=== PATIENT | female | born 1945 | race Caucasian/White ===

== ENCOUNTER → 2018-02-08 | Outpatient (CLI) | payer OTHER ==
[~2018-02-08] MED LIST: AMBIEN CR12.5 MG PO; BUSPAR10 MG PO; CLONAZEPAM0.5 MG PO; FOLIC ACID1 MG PO; LAMICTAL150 M1 PO; LEVAQUIN500 MG PO; MOTRIN800 MG PO; PERCOCET 5/31 TABLET PO; VENLAFAXINE HC150 MG PO; ZANTAC300 MG PO
== END | disposition home or self-care (01) ==
LOC: CT 16:29
DX: R42 Dizziness and giddiness (principal); Z91.81 History of falling
CPT/HCPCS: 70450

== ENCOUNTER → 2018-02-13 | Outpatient (CLI) | payer MEDICARE, OTHER | END | disposition home or self-care (01) | LOC: CDC 11:26 | DX: Z01.810 Encounter for preprocedural cardiovascular examination (principal); M79.645 Pain in left finger(s); S62.625A Displaced fracture of middle phalanx of left ring finger, initial encounter for closed fracture; M25.531 Pain in right wrist; S52.531A Colles' fracture of right radius, initial encounter for closed fracture | CPT/HCPCS: 93000 ==